=== PATIENT | male | born 1945 | race Caucasian/White ===

== ENCOUNTER 2023-05-07 09:54 | Emergency (ER) | payer MEDICARE | END 2023-05-07 12:01 | disposition home or self-care (01) | LOC: LB.ED 09:54 | DX: R04.0 Epistaxis (principal) | CPT/HCPCS: 30903; 99283 ==

== ENCOUNTER 2023-05-07 16:00 | Emergency (ER) | payer MEDICARE ==
[2023-05-07 16:39] LABS: BASOPHILS ABSOLUTE AUTO 0.03 K/uL (0.02-0.10); BASOPHILS PERCENT AUTO 0.4 % (0.0-0.5); EOSINOPHILS ABSOLUTE AUTO 0.05 K/uL (0.04-0.40); EOSINOPHILS PERCENT AUTO 0.6 % (1.0-5.0); HEMATOCRIT 34.1 % (40.0-54.0); HEMOGLOBIN 11.8 g/dL (13.0-18.0); LYMPHOCYTES ABSOLUTE AUTO 1.06 K/uL (1.50-4.00); LYMPHOCYTES PERCENT AUTO 13.2 % (20.0-40.0); MEAN CORPUSCULAR HGB CONC 34.6 g/dL (31.0-35.0); MEAN CORPUSCULAR VOLUME 92 fL (76-96); MEAN PLATELET VOLUME 9.8 fL (6.0-10.0); MONOCYTES ABSOLUTE AUTO 0.58 K/uL (0.20-0.80); MONOCYTES PERCENT AUTO 7.2 % (3.0-10.0); NEUTROPHILS ABSOLUTE AUTO 6.32 K/uL (2.00-7.50); NEUTROPHILS PERCENT AUTO 78.6 % (45.0-70.0); PLATELET COUNT,PLT 119 K/uL (150-400); RED BLOOD CELL COUNT 3.69 M/uL (4.50-6.50)
== END 2023-05-07 17:19 | disposition home or self-care (01) ==
LOC: LB.ED 16:00
DX: R04.0 Epistaxis (principal)
CPT/HCPCS: 36415; 85025; 99283

== ENCOUNTER 2024-09-05 08:59 | Emergency (ER) | payer MEDICARE ==
[2024-09-05] MEDS: Bacitracin Oint 1 GM U/D Packet TOP ONE (09:28)
== END 2024-09-05 09:40 | disposition home or self-care (01) ==
LOC: LB.ED 08:59
DX: S40.861A Insect bite (nonvenomous) of right upper arm, initial encounter (principal); Z79.899 Other long term (current) drug therapy; W57.XXXA Bitten or stung by nonvenomous insect and other nonvenomous arthropods, initial encounter
CPT/HCPCS: 99281